=== PATIENT | female | born 1965 | race Caucasian/White ===

== ENCOUNTER → 2017-02-28 | Outpatient (CLI) | payer OTHER ==
[~2017-02-28] MED LIST: ADVIL 200MG TA200 MG PO
== END ==
LOC: MC.RAD 13:20
DX: Z12.31 Encounter for screening mammogram for malignant neoplasm of breast (principal); Z80.3 Family history of malignant neoplasm of breast

== ENCOUNTER → 2018-03-03 | Outpatient (CLI) | payer OTHER | LOC: MC.RAD 14:33 | DX: Z12.31 Encounter for screening mammogram for malignant neoplasm of breast (principal) ==

== ENCOUNTER 2018-08-26 12:31 | Day surgery (SDC) | payer OTHER ==
[~2018-08-26] VITALS: Ht 167.6 cm; Wt 80.6 kg
[2018-08-26 12:48] VITALS: BP 142/97; PULSE 89; TEMP 98.1
[2018-08-26 14:45] VITALS: BP 131/84; PULSE 86; TEMP 98.2
[2018-08-26 15:00] VITALS: BP 119/80; PULSE 78
[2018-08-26 15:15] VITALS: BP 113/81; PULSE 77
[2018-08-26 15:30] VITALS: BP 113/77; PULSE 72
== END 2018-08-26 15:54 | disposition home or self-care (01) ==
LOC: SDCO 12:31
DX: Z12.11 Encounter for screening for malignant neoplasm of colon (principal); Z90.49 Acquired absence of other specified parts of digestive tract; Z88.0 Allergy status to penicillin; Z80.0 Family history of malignant neoplasm of digestive organs
CPT/HCPCS: J2250; J3010; J7030

== ENCOUNTER → 2019-03-31 | Outpatient (CLI) | payer OTHER | LOC: MC.RAD 15:26 | DX: Z12.31 Encounter for screening mammogram for malignant neoplasm of breast (principal) ==

== ENCOUNTER → 2020-04-08 | Outpatient (CLI) | payer OTHER | LOC: MC.RAD 08:56 | DX: Z12.31 Encounter for screening mammogram for malignant neoplasm of breast (principal) ==

== ENCOUNTER 2020-11-29 08:30 | Outpatient (RCR) | payer OTHER | END 2020-12-05 | disposition home or self-care (01) | LOC: WSOT | DX: S62.522A Displaced fracture of distal phalanx of left thumb, initial encounter for closed fracture (principal) ==

== ENCOUNTER 2020-12-14 13:33 | Outpatient (RCR) | payer OTHER | END 2021-01-06 15:20 | disposition home or self-care (01) | LOC: WSOT 13:33 | DX: S62.522A Displaced fracture of distal phalanx of left thumb, initial encounter for closed fracture (principal) ==

== ENCOUNTER → 2021-04-11 | Outpatient (CLI) | payer OTHER | LOC: MC.RAD 08:30 | DX: Z12.31 Encounter for screening mammogram for malignant neoplasm of breast (principal) ==

== ENCOUNTER → 2022-05-03 | Outpatient (CLI) | payer OTHER | LOC: MC.RAD 13:06 | DX: Z12.31 Encounter for screening mammogram for malignant neoplasm of breast (principal) ==

== ENCOUNTER → 2024-05-13 | Outpatient (CLI) | payer OTHER | LOC: MC.RAD 09:04 | DX: Z12.31 Encounter for screening mammogram for malignant neoplasm of breast (principal) ==